=== PATIENT | female | born 1945 | race Caucasian/White ===

== ENCOUNTER 2018-02-11 20:14 | Emergency (ER) | payer MEDICARE, MEDICAID ==
[~2018-02-11] VITALS: Ht 165.1 cm; Wt 66.5 kg
[~2018-02-11 20:14] MED LIST: ONDA4TAB6 PO; ONDA8TAB9 PO; PHEN-873 PO; POLY119P2 PO; SUCR1ORA2 PO
[2018-02-11] MEDS ORDERED: acetaminophen 325mg tablet PO ONE ×2 (21:00→21:05)
[2018-02-11] MEDS ORDERED: ACET-2119 PO (21:06)
[2018-02-11 21:24] VITALS: BP 131/84
== END 2018-02-11 21:27 | disposition home or self-care (01) ==
LOC: ER 20:15
DX: S80.02XA Contusion of left knee, initial encounter (principal); K21.9 Gastro-esophageal reflux disease without esophagitis; Z90.710 Acquired absence of both cervix and uterus; Z88.6 Allergy status to analgesic agent; Z79.899 Other long term (current) drug therapy; X58.XXXA Exposure to other specified factors, initial encounter; Y93.89 Activity, other specified; Y92.89 Other specified places as the place of occurrence of the external cause; Y99.8 Other external cause status
CPT/HCPCS: 73564; 99284; A6449

== ENCOUNTER 2019-06-08 05:25 | Emergency (ER) | payer MEDICARE, MEDICAID ==
[~2019-06-08] VITALS: Ht 165.1 cm; Wt 57.0 kg
[~2019-06-08 05:25] MED LIST changes: +PHEN-786 PO; -PHEN-873 PO
[2019-06-08] MEDS ORDERED: acetaminophen 325mg tablet PO ONE (05:35)
[2019-06-08 06:00] LABS: CLARITY,URINE CLOUDY (Clear); COLOR,URINE YELLOW (Yellow); GLUCOSE, URINE NEGATIVE (Neg); KETONES,URINE NEGATIVE (Neg); LEUKOCYTE ESTERASE ,URINE LARGE (Neg); NITRITES, URINE POSITIVE (Neg); OCCULT BLOOD,URINE LARGE (Neg); PH,URINE 5.5 (4.8-8.0); PROTEIN,URINE 30 mg/dl (Neg); UROBILINOGEN,URINE 0.2 E.U/dL (0.2-1.0)
[2019-06-08 06:04] LABS: UA COLLECTION TYPE CLN CATCH MIDSTREAM
--- NOTE | 2019-06-08 06:09 | NUR ---
TYLENOL NOT GIVEN DUE TO PATIENT'S TEMP NORMALIZING. CURRENT TEMP 97.8 ORALLY
[2019-06-08 06:13] LABS: BASOPHILS % (AUTO) 0.6 % (0-1); EOSINOPHILS # (AUTO) 0.2 X10'3 (0-0.9); EOSINOPHILS % (AUTO) 2.9 % (0-6); HEMATOCRIT 43.3 % (35.0-45.0); HEMOGLOBIN 14.9 g/dl (12.0-16.0); LYMPHOCYTES # (AUTO) 1.2 X10'3 (1.1-4.8); LYMPHOCYTES % (AUTO) 20.5 % (21-51); MEAN CORPUSCULAR HEMOGLOBIN 29.7 PG (27.0-31.0); MEAN CORPUSCULAR HGB CONC 34.4 g/dL (33.0-36.5); MEAN CORPUSCULAR VOLUME 86.4 FL (78-98); MEAN PLATELET VOLUME 7.9 FL (7.4-10.4); MONOCYTES # (AUTO) 0.3 X10'3 (0-0.9); MONOCYTES % (AUTO) 4.3 % (2-12); NEUTROPHILS # (AUTO) 4.2 X10'3 (1.8-7.7); NEUTROPHILS % (AUTO) 71.7 % (42-75); PLATELET COUNT 222 X10'3 (140-440); RED BLOOD COUNT 5.01 X10'6 (4.20-5.60); RED CELL DISTRIBUTION WIDTH 13.1 % (11.5-14.5); WHITE BLOOD COUNT 5.9 X10'3 (4.5-11.0)
[2019-06-08 06:19] LABS: RBC,URINE 50-100 /HPF (0-2); WBC,URINE TNTC /HPF (0-4)
[2019-06-08 06:20] LABS: BACTERIA,URINE 3+ /HPF (Neg)
[2019-06-08 06:23] LABS: AMORPHOUS URATES 1+; MUCUS STRANDS MODERATE /LPF (Neg); SQUAMOUS EPITHELIAL CELL,UR MANY /LPF (FEW)
[2019-06-08 06:24] LABS: WBC CLUMPS,URINE FEW /HPF (NEGATIVE)
[2019-06-08 06:30] LABS: PARTIAL THROMBOPLASTIN TIME 27 SECONDS (22-32)
[2019-06-08] MEDS ORDERED: CefTRIAXone 1000mg IM Kit (w/lidocaine diluent) IM ONE (06:30)
[2019-06-08 06:38] LABS: ALANINE AMINOTRANSFERASE 19 U/L (12-78); ALBUMIN 3.6 G/DL (3.4-5.0); ALBUMIN/GLOBULIN RATIO 0.9 (1.1-1.5); ALKALINE PHOSPHATASE 143 IU/L (46-116); ANION GAP 9 (8-16); ASPARTATE AMINO TRANSFERASE 19 U/L (10-37); BILIRUBIN,TOTAL 0.3 MG/DL (0.1-1.0); BLOOD UREA NITROGEN 16 MG/DL (7-18); BUN/CREATININE RATIO 20.8 (6.6-38.0); CALCIUM 8.8 MG/DL (8.5-10.1); CHLORIDE 104 MMOL/L (99-107); CREATININE 0.77 MG/DL (0.40-0.90); GLUCOSE 108 MG/DL (70-104); POTASSIUM 4.1 MMOL/L (3.5-5.1); SODIUM 141 MMOL/L (135-145); TOTAL CARBON DIOXIDE 27.6 MMOL/L (24-32); TOTAL PROTEIN 7.4 G/DL (6.4-8.2); eGFR 74 ML/MIN
[2019-06-08] MEDS ORDERED: CEPH500C5 PO (06:39)
[2019-06-08 06:59] VITALS: BP 130/93
== END 2019-06-08 07:11 | disposition home or self-care (01) ==
LOC: ER 05:25
DX: N39.0 Urinary tract infection, site not specified (principal); K21.9 Gastro-esophageal reflux disease without esophagitis; R79.1 Abnormal coagulation profile; Z90.710 Acquired absence of both cervix and uterus; Z88.6 Allergy status to analgesic agent; Z79.899 Other long term (current) drug therapy
CPT/HCPCS: 36415; 80053; 81001; 83605; 84145; 85025; 85610; 85730; 87040; 96372; 99283; J0696